=== PATIENT | male | born 1980 | race Caucasian/White ===

== ENCOUNTER 2021-06-20 04:46 | Emergency (ER) | payer OTHER, SELFPAY ==
[2021-06-20 04:52] VITALS: BP 138/78; PULSE 84; RESP 20; TEMP 36.4; O2SAT 98; BMI 31.3
--- NOTE | 2021-06-20 05:29 | PC.NURSE ---
Called pt for lab draw, at [phone] with no answer. Charge nurse aware.
== END 2021-06-20 05:38 | disposition left against medical advice (07) ==
PROVIDERS: Emergency Provider Emergency Medicine
DX: R10.11 Right upper quadrant pain (principal); R11.2 Nausea with vomiting, unspecified; Z90.49 Acquired absence of other specified parts of digestive tract
CPT/HCPCS: 99282; 99283

== ENCOUNTER 2021-07-01 19:05 | Emergency (ER) | payer OTHER, SELFPAY ==
[2021-07-01 21:35] VITALS: BP 113/84; PULSE 85; RESP 18; TEMP 36.9; O2SAT 99; BMI 32.8
== END 2021-07-01 23:30 | disposition left against medical advice (07) ==
PROVIDERS: Emergency Provider Emergency Medicine
DX: S89.91XA Unspecified injury of right lower leg, initial encounter (principal); S69.92XA Unspecified injury of left wrist, hand and finger(s), initial encounter; W19.XXXA Unspecified fall, initial encounter; Y93.9 Activity, unspecified; Y92.480 Sidewalk as the place of occurrence of the external cause; Y99.9 Unspecified external cause status
CPT/HCPCS: 99281; 99282